=== PATIENT | female | born 1985 | race Asian ===

== ENCOUNTER 2018-01-24 08:02 | Outpatient (CLI) | payer BC ==
[~2018-01-24] VITALS: Ht 160 cm; Wt 75.4 kg
[2018-01-24 09:28] VITALS: BP 105/73
[2018-01-24] MEDS ORDERED: PREN1TAB10 PO (10:02)
== END 2018-01-24 10:09 | disposition home or self-care (01) ==
LOC: LDOP 08:02
PROVIDERS: ATTEND Obstetrics & Gynecology
DX: O62.9 Abnormality of forces of labor, unspecified (principal); O26.893 Other specified pregnancy related conditions, third trimester; R10.9 Unspecified abdominal pain; Z3A.39 39 weeks gestation of pregnancy
CPT/HCPCS: 59025; 99201; G0463

== ENCOUNTER 2018-01-27 05:05 | Inpatient (IN) | payer BC ==
[~2018-01-27] VITALS: Ht 160 cm; Wt 75.0 kg
[~2018-01-27 05:05] MED LIST: PREN1TAB10 PO
[2018-01-27] MEDS ORDERED: LACTATED RINGERS 1,000 ML IV SCH (05:12)
[2018-01-27] MEDS ORDERED: OXYTOCIN 30U/ 0.9% NaCL 500ML 500 ML IV SCH (05:12)
[2018-01-27] MEDS ORDERED: LACTATED RINGERS 1,000 ML IVBOLUS ONE (05:30)
[2018-01-27] MEDS ORDERED: SODIUM CITRATE/CITRIC ACID 30 ML UDC PO ONE (05:30)
[2018-01-27] MEDS ORDERED: METOCLOPRAMIDE 5 MG/ML, 2ML IV ONE (05:30)
[2018-01-27] MEDS ORDERED: NEWBORN KIT ONE (05:39)
[2018-01-27 05:42] LABS: BASOPHILS # (AUTO) 0.07 x10^3/uL (0-0.1); BASOPHILS % (AUTO) 1 % (0-1); EOSINOPHILS # (AUTO) 0.08 x10^3/uL (0-0.4); EOSINOPHILS % (AUTO) 1 % (1-7); LYMPHOCYTES # (AUTO) 2.16 x10^3/uL (1-3.4); LYMPHOCYTES % (AUTO) 26 % (22-44); MD NO; MEAN CORPUSCULAR HEMOGLOBIN 26.1 pg (27.0-34.8); MEAN CORPUSCULAR HGB CONC 32.8 g/dL (32.4-35.8); MEAN CORPUSCULAR VOLUME 79.5 fL (80-100); MEAN PLATELET VOLUME 6.6 fL (7.4-10.4); MONOCYTES # (AUTO) 0.67 x10^3/uL (0.2-0.8); MONOCYTES % (AUTO) 8 % (2-9); NEUTROPHILS # (AUTO) 5.38 x10^3/uL (1.8-6.8); NEUTROPHILS % (AUTO) 64 % (42-75); PLATELET COUNT 414 x10^3/uL (130-400); RED BLOOD COUNT 3.93 x10^6/uL (3.82-5.3); RED CELL DISTRIBUTION WIDTH 16.4 % (9.6-15.2)
[2018-01-27] MEDS ORDERED: SODIUM CITRATE/CITRIC ACID 30 ML UDC ONE (05:58)
[2018-01-27] MEDS ORDERED: METOCLOPRAMIDE 5 MG/ML, 2ML ONE (05:58)
[2018-01-27] MEDS ORDERED: OXYTOCIN 30U/ 0.9% NaCL 500ML 500 ML ONE (05:59)
[2018-01-27] MEDS ORDERED: ONDANSETRON 2MG/ML, 2ML IV PRN ×2 (07:30→08:00)
[2018-01-27] MEDS ORDERED: MORPHINE SULFATE 4 MG/ML, 1ML IVPush PRN (07:30)
[2018-01-27] MEDS ORDERED: EPHEDRINE 50 MG/ML, 1ML IVPush PRN (07:30)
[2018-01-27] MEDS ORDERED: FENTANYL PF 100 MCG/2ML IV PRN (07:30)
[2018-01-27] MEDS: LACTATED RINGERS 1,000 ML IV SCH ×5 (07:45→23:45)
[2018-01-27] MEDS ORDERED: IBUPROFEN 600 MG TABLET PO PRN (08:00)
[2018-01-27] MEDS ORDERED: METOCLOPRAMIDE 5 MG/ML, 2ML IV PRN (08:00)
[2018-01-27] MEDS ORDERED: GLYCERIN ADULT SUPP PR PRN (08:00)
[2018-01-27] MEDS ORDERED: DIPH,PERTUSS(ACELL),TET VAC/PF NC IM-VACC PRN (08:00)
[2018-01-27] MEDS ORDERED: MEASLES,MUMPS&RUBELLA VACC/PF 0.5 ML SQ-VACC PRN (08:00)
[2018-01-27] MEDS ORDERED: ACETAMINOPHEN 325 MG TABLET PO PRN ×2 (08:00)
[2018-01-27] MEDS ORDERED: BISACODYL 10 MG SUPP PR PRN (08:00)
[2018-01-27] MEDS ORDERED: CALCIUM CARBONATE 500 MG TAB.CHEW PO PRN (08:00)
[2018-01-27] MEDS ORDERED: DOCUSATE 100 MG CAPSULE PO PRN (08:00)
[2018-01-27] MEDS ORDERED: SIMETHICONE 80 MG CHEW TAB PO PRN (08:00)
[2018-01-27] MEDS ORDERED: MISOPROSTOL 200 MCG TABLET PR PRN (08:00)
[2018-01-27] MEDS ORDERED: CARBOPROST TROMETHAMINE 250 MCG/ML, 1ML IM PRN (08:00)
[2018-01-27] MEDS ORDERED: METHYLERGONOVINE 0.2 MG/ML IM PRN (08:00)
[2018-01-27] MEDS ORDERED: EPHEDRINE 50 MG/ML, 1ML ONE (08:41)
[2018-01-27] MEDS ORDERED: CEFAZOLIN 1,000 MG ONE (08:41)
[2018-01-27] MEDS ORDERED: EPINEPHRINE 1 MG/ML, 1ML ONE (08:41)
[2018-01-27] MEDS ORDERED: KETOROLAC 30 MG/1 ML ONE (08:41)
[2018-01-27] MEDS ORDERED: OXYTOCIN 10 UNITS/ML, 1ML ONE (08:41)
[2018-01-27] MEDS: PRENATAL VIT/IRON/FA 1 EACH TABLET PO SCH (09:00)
[2018-01-27] MEDS: OXYTOCIN 30U/ 0.9% NaCL 500ML 500 ML IV SCH ×2 (09:30→17:45)
[2018-01-27 10:30] VITALS: BP 112/73
[2018-01-27 12:00] VITALS: BP 101/69
[2018-01-27] MEDS: OXYcodone/APAP 5/325MG TABLET PO PRN ×2 (12:38→16:46)
[2018-01-27] MEDS: KETOROLAC 30 MG/1 ML IV SCH ×3 (14:00→20:45)
[2018-01-27 16:00] VITALS: BP 108/70
[2018-01-27 16:28] LABS: BASOPHILS # (AUTO) 0.05 x10^3/uL (0-0.1); BASOPHILS % (AUTO) 0 % (0-1); EOSINOPHILS # (AUTO) 0.01 x10^3/uL (0-0.4); EOSINOPHILS % (AUTO) 0 % (1-7); LYMPHOCYTES % (AUTO) 11 % (22-44); MD NO; MEAN CORPUSCULAR HEMOGLOBIN 26.6 pg (27.0-34.8); MEAN CORPUSCULAR VOLUME 80.7 fL (80-100); MEAN PLATELET VOLUME 6.6 fL (7.4-10.4); MONOCYTES % (AUTO) 7 % (2-9); NEUTROPHILS # (AUTO) 9.85 x10^3/uL (1.8-6.8); NEUTROPHILS % (AUTO) 82 % (42-75); PLATELET COUNT 402 x10^3/uL (130-400); RED BLOOD COUNT 3.37 x10^6/uL (3.82-5.3); RED CELL DISTRIBUTION WIDTH 16.1 % (9.6-15.2)
[2018-01-27 19:40] VITALS: BP 103/72
[2018-01-28 00:30] VITALS: BP 109/74
[2018-01-28] MEDS: OXYcodone/APAP 5/325MG TABLET PO PRN ×2 (00:49→15:40)
[2018-01-28] MEDS: KETOROLAC 30 MG/1 ML IV SCH ×4 (02:36→21:37)
[2018-01-28] MEDS: OXYTOCIN 30U/ 0.9% NaCL 500ML 500 ML IV SCH ×3 (03:45→23:45)
[2018-01-28] MEDS: LACTATED RINGERS 1,000 ML IV SCH ×6 (03:45→23:45)
[2018-01-28 04:40] VITALS: BP 102/60
[2018-01-28 08:00] VITALS: BP 108/73
[2018-01-28] MEDS: PRENATAL VIT/IRON/FA 1 EACH TABLET PO SCH (09:00)
[2018-01-28 20:00] VITALS: BP 111/76
[2018-01-29] MEDS: KETOROLAC 30 MG/1 ML IV SCH (01:23)
[2018-01-29] MEDS: LACTATED RINGERS 1,000 ML IV SCH (07:45)
[2018-01-29 08:00] VITALS: BP 113/78
[2018-01-29] MEDS: PRENATAL VIT/IRON/FA 1 EACH TABLET PO SCH (09:00)
[2018-01-29] MEDS ORDERED: IBUP-1222 PO (09:56)
[2018-01-29] MEDS ORDERED: OXYC-302 PO (09:56)
== END 2018-01-29 12:39 | disposition home or self-care (01) | DRG 785 ==
LOC: LDIP 05:05 → 2NW 10:18
PROVIDERS: ADMIT Obstetrics & Gynecology; ATTEND Obstetrics & Gynecology
PROC: 10D00Z1 Extraction of Products of Conception, Low, Open Approach (ICD-10-PCS; principal; 2018-01-27)
PROC: 0UB70ZZ Excision of Bilateral Fallopian Tubes, Open Approach (ICD-10-PCS; 2018-01-27)
DX: O34.211 Maternal care for low transverse scar from previous cesarean delivery (principal); O99.02 Anemia complicating childbirth; D64.9 Anemia, unspecified; Z30.2 Encounter for sterilization; Z37.0 Single live birth; Z3A.39 39 weeks gestation of pregnancy; Z23 Encounter for immunization
CPT/HCPCS: 36415; 85025; 86850; 86900; 88302; 90715; G0378; J0171; J0690; J1885; J2590; J2765; J7120